=== PATIENT | female | born 1930 | race Caucasian/White ===

== ENCOUNTER → 2017-12-24 | Emergency (ER) | payer MEDICARE, OTHER ==
[~2017-12-24] VITALS: Ht 160 cm; Wt 70.3 kg
[~2017-12-24] MED LIST: DEXAMETHASONE SOD PHOS 10 MG/1 ML VIAL INJ ONE; DEXAMETHASONE SOD PHOS 10 MG/1 ML VIAL ONE
== END | disposition home or self-care (01) ==
LOC: ER 11:09
DX: M54.32 Sciatica, left side (principal)
CPT/HCPCS: J1100